=== PATIENT | female | born 1945 | race Two or more races ===

== ENCOUNTER 2017-07-02 15:05 | Emergency (ER) | payer MEDICAID ==
[~2017-07-02] VITALS: Ht 152.4 cm; Wt 54.4 kg
--- NOTE | 2017-07-02 15:15 | NUR ---
GREGG SCOTT AT FOR WOUND CARE.
[2017-07-02] MEDS ORDERED: TDAP [DIPH/PERTUSSIS/TET] 0.5 ML VIAL IM ONE ×2 (15:22→15:30)
--- NOTE | 2017-07-02 15:35 | NUR ---
PT TAKEN TO CT.
[2017-07-02] MEDS ORDERED: LIDOCAINE HCL/PF 1% 30 ML SDV ONE (16:07)
--- NOTE | 2017-07-02 17:50 | NUR ---
CALL[facility] OFFIC[facility]AN[facility]LL[facility] TO SEE IF THERE ARE ANY MISSING PERSON'S REPORTS FOR THE PATIENT. THERE ARE NO ACTIVE MISSING PERSON'S REPORTS. HE FOUND AN ADDRESS OF [id number] UPDATED 07/2016. NO FAMILY CONTACT INFORMATION. SUGGESTED CALLING DION RAMIREZ [phone] FOR FOLLOW UP.
--- NOTE | 2017-07-02 18:31 | NUR ---
SPOKE WITH OFFICER DANIELLA AGAIN AND PROVIDED ADDRESS ON FILE WITH JAIME ETIENNE. HE WILL DISPATCH A CREW TO THE RESIDENCE TO ATTEMPT TO REACH FAMILY MEMBER
--- NOTE | 2017-07-02 19:49 | NUR ---
pt [id number] no acute distress noted, resp even and unlabored. pending discharge. admitting personnel rito at bedside to translate.
[2017-07-02] MEDS ORDERED: ACETAMINOPHEN ES 500 MG TABLET ONE (20:13)
[2017-07-02] MEDS ORDERED: ACETAMINOPHEN ES 500 MG TABLET PO ONE (20:30)
--- NOTE | 2017-07-02 21:16 | NUR ---
Patient discharged to home in stable condition. Written and verbal after care instructions given. Patient verbalizes understanding of instruction. ambulatory with a steady gait noted. pt [id number] no acute distress noted, resp even and unlabored. taxi voucher provided to pt.
[2017-07-02 21:19] VITALS: BP 134/73
== END 2017-07-02 21:20 | disposition home or self-care (01) ==
LOC: ER 15:08 → EDBD 15:08 → ER 21:20
DX: S01.112A Laceration without foreign body of left eyelid and periocular area, initial encounter (principal); I10 Essential (primary) hypertension; E78.00 Pure hypercholesterolemia, unspecified; W01.10XA Fall on same level from slipping, tripping and stumbling with subsequent striking against unspecified object, initial encounter; Y93.89 Activity, other specified; Y92.89 Other specified places as the place of occurrence of the external cause; Y99.8 Other external cause status
CPT/HCPCS: 12011; 70450; 90471; 90715; 99284; A4606; A6402; A6403; J3490; Z7610